=== PATIENT | male | born 2005 ===

== ENCOUNTER 2024-06-03 10:39 | Inpatient (IN) | payer OTHER, SELFPAY ==
[2024-06-03] VITALS (15 sets, daily range): BP systolic 111–134; BP diastolic 55–90; PULSE 59–81; RESP 12–29; TEMP 36.1–36.4; O2SAT 97–100; BMI 20.5; BMI 18.1
--- NOTE | 2024-06-03 10:54 | DI.RAD.S_ITS ---
PROCEDURE: XR CHEST 2V INDICATIONS: rule out pneumo TECHNIQUE: 2 views of the chest were acquired. COMPARISON: None. FINDINGS: Surgical changes and devices: None. Lungs and pleura: Lungs are clear. No pleural effusions. Small to moderate right pneumothorax. Mediastinum: Mediastinal contours are normal. Heart size is normal. Bones and chest wall: No suspicious bony abnormalities. Soft tissues appear unremarkable. IMPRESSION: Right-sided pneumothorax. Findings telephoned to Dr. Bourne on June 03, 2024 at 11:33 a.m. Dictated by: Kendra Chand MD, PhD on 06/03/2024 at 11:31 Approved by: Kendra Chand MD, PhD on 06/03/2024 at 11:33
--- NOTE | 2024-06-03 11:01 | EKG_ITS ---
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
[2024-06-03 11:16] LABS: Add Manual Diff / Slide Review NO; Basophils Absolute Auto 0 /uL (0-100); Basophils Percent Auto 0.4 % (0-2); Eosinophils Absolute Auto 0 /uL (0-450); Eosinophils Percent Auto 0.4 % (2-4); Hematocrit 39.8 % (41-53); Lymphocytes Absolute Auto 1800 /uL (1100-4500); Lymphocytes Percent Auto 28.4 % (25-40); Mean Corpuscular HGB Conc 32.8 % (30-36); Mean Corpuscular Hemoglobin 25.7 PG (26-34); Mean Corpuscular Volume 78.5 fL (80-100); Monocytes Absolute Auto 500 /uL (0-900); Monocytes Percent Auto 8.2 % (3-14); Neutrophils Absolute Auto 3900 /uL (1500-7000); Neutrophils Percent Auto 62.6 % (50-75); Platelet Count 276 X10^3/uL (150-400); Red Blood Cell Count 5.06 X10^6/uL (4.5-5.9); Red Cell Distribution Width 13.8 % (11.6-14.8); White Blood Cell Count 6.2 X10^3/uL (4.5-11.0)
--- NOTE | 2024-06-03 11:23 | PC.NURSE ---
Pt reports CP starting yesterday when working out; [place] in [place] and referred him to ER.
--- NOTE | 2024-06-03 11:26 | ED_ITS ---
HPI - General Adult General Chief complaint: Shortness of Breath/Dyspnea Stated complaint: states had CT, has cut in his lungs, sent by Dr Time Seen by Provider: 06/03/24 11:00 Source: patient Mode of arrival: Ambulatory History of Present Illness HPI narrative: Patient is a 18-year-old otherwise healthy male who states yesterday he was doing pushups. He stated that he had a sudden pain in his right shoulder. It caused him to stop his exercising. He went home. Was uncomfortable overnight and today. Some shortness of breath. 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 Apparently had a chest x-ray which showed a pneumothorax and was sent to the emergency department for further evaluation. Related Data Allergies Allergy/AdvReac Type Severity Reaction Status Date / Time No Known Drug Allergies Allergy Verified 06/03/24 10:49 Review of Systems Review of Systems ROS Unobtainable: All systems reviewed & are unremarkable except as noted in HPI and below Patient History Social History Smoking Status: Unknown if ever smoked Smoking Status: Unknown if ever smoked alcohol intake frequency: holidays/special occasions only Substance Use Type: does not use Exam Initial Vital Signs Initial Vital Signs: Vital Signs Temperature 96.9 F L 06/03/24 10:49 Pulse Rate 66 06/03/24 10:49 Respiratory Rate 14 06/03/24 10:49 Blood Pressure 120/70 06/03/24 10:49 Pulse Oximetry 100 06/03/24 10:49 Oxygen Delivery Method Room Air 06/03/24 10:49 Resp Effort & Inspection: normal respiratory effort, no cough, no respiratory distress and not tachypneic Auscultation: diminished lung sounds on the right Cardio Rate: regular rate Skin General: no rashes or lesions noted Neuro General: patient alert, patient awake, patient oriented x3 and moves all extremities Extrem General: capillary refill normal Procedures Chest Tube Chest Tube 1: Chest Tube Location: right and anterior axillary line Chest Tube Prep: Yes betadine prep and sterile drapes applied Local Anesthetic: lidocaine 1% and with epi Amount of anesthesia used (mL): 5 Incision Made With: #11 blade Post Procedure: sutured to skin and sterile dressing applied Tube Drainage: none Post Procedure CXR?: Yes Patient Tolerated Procedure: Yes Progress: Stewart pigtail catheter placed Course Orders Ordered: ED Orders 06/03/24 10:53 EKG-12 Lead Stat Measure peak expiratory flow ONCE RT Consult Eval and Treat NOW 06/03/24 10:54 Chest [XR chest 2V] Stat 06/03/24 11:00 Complete Blood Count AUTO DIFF Stat Comprehensive Metabolic Panel Stat 06/03/24 11:57 XR chest 1V Stat 06/03/24 12:04 Consult to General Surgery Stat Hydrocodone Bitart/Acetaminophen (Hydrocodone/Acet 5/325 Tablet) 2 tab PO Q4H PRN PRN Reason: Pain, Severe (7-10) Last Admin: 06/03/24 13:49 Dose: 2 tab Documented By: JEFF Hydrocodone Bitart/Acetaminophen (Hydrocodone/Acet 5/325 Tablet) 1 tab PO Q4H PRN PRN Reason: Pain, Moderate (4-6) Hydromorphone HCl (Hydromorphone 0.5 Mg Inj) 0.5 mg IV Q2H PRN PRN Reason: Pain, Severe (7-10) Ibuprofen (Ibuprofen 600 Mg Tablet) 600 mg PO Q6H PRN PRN Reason: Fever/Mild Pain (1-3) Naloxone HCl (Naloxone 0.4 Mg/Ml Vial) 0.2 mg IV Q2MIN PRN PRN Reason: Opiate Reversal Ondansetron HCl (Ondansetron 4 Mg/2 Ml Inj) 4 mg IV Q8HR PRN PRN Reason: Nausea And Vomiting Discontinued Medications Morphine Sulfate (Morphine 4 Mg/Ml Inj) 4 mg IV NOW ONE Stop: 06/03/24 12:06 Last Admin: 06/03/24 12:09 Dose: 4 mg Documented By: JEFF Vital Signs Vital signs: Vital Signs - 8 hr 06/03/24 10:49 06/03/24 10:57 06/03/24 10:57 Temperature 96.9 F L Pulse Rate 66 66 Respiratory Rate 14 Blood Pressure 120/70 125/60 Pulse Oximetry 100 100 Oxygen Delivery Method Room Air 06/03/24 11:00 06/03/24 11:00 06/03/24 11:30 Temperature Pulse Rate 81 65 Respiratory Rate 19 17 Blood Pressure 134/78 Pulse Oximetry 100 98 Oxygen Delivery Method 06/03/24 11:34 06/03/24 11:34 06/03/24 11:48 Temperature Pulse Rate 78 66 Respiratory Rate 13 12 Blood Pressure 119/72 119/72 Pulse Oximetry 100 98 Oxygen Delivery Method Medical Decision Making Lab Data Lab results reviewed: Yes I reviewed the patient's lab results. 06/03/24 11:00 06/03/24 11:00 Labs: Lab Results 06/03/24 Range/Units 11:00 WBC 6.2 (4.5-11.0) X10^3/uL RBC 5.06 (4.5-5.9) X10^6/uL Hgb 13.0 L (13.5-17.5) g/dL Hct 39.8 L (41-53) % MCV 78.5 L (80-100) fL MCH 25.7 L (26-34) PG MCHC 32.8 (30-36) % RDW 13.8 (11.6-14.8) % Plt Count 276 (150-400) X10^3/uL Neut % (Auto) 62.6 (50-75) % Lymph % (Auto) 28.4 (25-40) % Camp % (Auto) 8.2 (3-14) % Eos % (Auto) 0.4 L (2-4) % Baso % (Auto) 0.4 (0-2) % Neut # (Auto) 3900 (3365-0725) /uL Lymph # (Auto) 1800 (9682-5535) /uL Camp # (Auto) 500 (0-900) /uL Eos # (Auto) 0 (0-450) /uL Baso # (Auto) 0 (0-100) /uL Sodium 140 (137-145) mmol/L Potassium 3.8 (3.4-5.1) mmol/L Chloride 107 (98-107) mmol/L Carbon Dioxide 23 (22-32) mmol/L BUN 13 (9-20) mg/dL Creatinine 1.06 (0.66-1.25) mg/dL Estimated GFR > 60 (>60) mL/min BUN/Creatinine Ratio 12.3 (6-22) Glucose 79 (70-100) mg/dL Calcium 9.4 (8.4-10.2) mg/dL Total Bilirubin 0.5 (0.2-1.3) mg/dL AST 34 (17-59) IU/L ALT 14 (<50) IU/L Alkaline Phosphatase 79 (38-126) U/L Troponin I Cancelled NT-Pro-B Natriuret Pep Cancelled Total Protein 8.5 H (6.3-8.2) g/dL Albumin 4.8 (3.5-5.0) g/dL Globulin 3.7 (1.7-4.1) g/dL Albumin/Globulin Ratio 1.3 (1.0-2.8) Imaging Data Chest x-ray: Radiologist's Impression: PROCEDURE: XR CHEST 2V INDICATIONS: rule out pneumo TECHNIQUE: 2 views of the chest were acquired. COMPARISON: None. FINDINGS: Surgical changes and devices: None. Lungs and pleura: Lungs are clear. No pleural effusions. Small to moderate right pneumothorax. Mediastinum: Mediastinal contours are normal. Heart size is normal. Bones and chest wall: No suspicious bony abnormalities. Soft tissues appear unremarkable. IMPRESSION: Right-sided pneumothorax. Findings telephoned to Dr. Bourne on June 03, 2024 at 11:33 a.m. S/P chest tube CXR: Radiologist's Impression: PROCEDURE: XR CHEST 1V INDICATIONS: s/p r sided pigtail placement TECHNIQUE: One view of the chest was acquired. COMPARISON: [facility], XR CHEST 2V, 06/03/2024, 11:03. FINDINGS: Surgical changes and devices: Right-sided small bore pigtail chest tube. Lungs and pleura: Lungs are clear. No pleural effusions or pneumothorax. Mediastinum: Mediastinal contours appear normal. Heart size is normal. Bones and chest wall: No suspicious bony lesions. Overlying soft tissues appear unremarkable. IMPRESSION: No pneumothorax following placement of right-sided chest tube. Repeat chest x-ray: Radiologist's Impression: PROCEDURE: XR CHEST 1V INDICATIONS: continued pain after tube plaement TECHNIQUE: One view of the chest was acquired. COMPARISON: [facility], XR CHEST 1V, 06/03/2024, 11:46. [facility], XR CHEST 2V, 06/03/2024, 11:03. FINDINGS: Surgical changes and devices: Right-sided chest tube in place. Lungs and pleura: Lungs are clear. No pleural effusions or pneumothorax. Mediastinum: Mediastinal contours appear normal. Heart size is normal. Bones and chest wall: No suspicious bony lesions. Overlying soft tissues appear unremarkable. IMPRESSION: Right-sided chest tube in place. No pneumothorax is seen. ECG Data Attestation: I personally reviewed and interpreted this ECG as follows: Interpretation: Sinus rhythm Ventricular rate is 72 Normal axis Normal QRS Normal QTC No ST T wave changes MDM Narrative Medical decision making narrative: Patient has a spontaneous right-sided pneumothorax which probably occurred yesterday when he was doing pushups. Patient was not hypoxic. He tolerated the pigtail catheter placement without issue. Had some continued discomfort afterwards however repeated chest x-rays show that the pigtail catheter is in appropriate position with resolution of the pneumothorax. Discussed the case with Dr. Rene on-call with General surgery. We will admit for further evaluation and treatment. Discussed the need for admission with the patient. He expressed understanding and agreement as well. Discharge Plan Departure Patient Disposition: Admitted As Inpatient Clinical Impression: Spontaneous pneumothorax Admit Date/Time: 06/03/24 12:04 Admit Provider: Srikanth Rene
[2024-06-03 11:30] LABS: Alanine Aminotransferase 14 IU/L (<50); Albumin 4.8 g/dL (3.5-5.0); Albumin Globulin Ratio 1.3 (1.0-2.8); Alkaline Phosphatase 79 U/L (38-126); Aspartate Aminotransferase 34 IU/L (17-59); BUN Creatinine Ratio 12.3 (6-22); Bilirubin Total 0.5 mg/dL (0.2-1.3); Blood Urea Nitrogen 13 mg/dL (9-20); Calcium 9.4 mg/dL (8.4-10.2); Carbon Dioxide 23 mmol/L (22-32); Chloride 107 mmol/L (98-107); Estimated Glomerular Filt Rate > 60 mL/min (>60); Globulin 3.7 g/dL (1.7-4.1); Glucose 79 mg/dL (70-100); HEMOLYSIS < 15 (0-50); Potassium 3.8 mmol/L (3.4-5.1); Sodium 140 mmol/L (137-145); Total Protein 8.5 g/dL (6.3-8.2)
--- NOTE | 2024-06-03 11:43 | PC.NURSE ---
Patient is a healthy male in the who presents by referral for collapsed lung. He reports sob. His lung sounds are clear on left and diminished on the right. His o2 sat is 100% on RA.
--- NOTE | 2024-06-03 11:57 | DI.RAD.S_ITS ---
PROCEDURE: XR CHEST 1V INDICATIONS: s/p r sided pigtail placement TECHNIQUE: One view of the chest was acquired. COMPARISON: [facility], , XR CHEST 2V, 06/03/2024, 11:03. FINDINGS: Surgical changes and devices: Right-sided small bore pigtail chest tube. Lungs and pleura: Lungs are clear. No pleural effusions or pneumothorax. Mediastinum: Mediastinal contours appear normal. Heart size is normal. Bones and chest wall: No suspicious bony lesions. Overlying soft tissues appear unremarkable. IMPRESSION: No pneumothorax following placement of right-sided chest tube. Dictated by: Kendra Chand MD, PhD on 06/03/2024 at 12:07 Approved by: Kendra Chand MD, PhD on 06/03/2024 at 12:08
--- NOTE | 2024-06-03 12:03 | PC.NURSE ---
Patient tolerated the catheter placement but did not tolerate the suction. He complained of increasing discomfort. provider notified and the suction was decreased per provider verbal order. The patient was still having discomfort so the suction was discontinued per provider order and pleur-e-vac was set to water seal.
[2024-06-03] MEDS: MORPHINE 4 MG/ML INJ IV (12:09)
--- NOTE | 2024-06-03 13:16 | DI.RAD.S_ITS ---
PROCEDURE: XR CHEST 1V INDICATIONS: continued pain after tube plaement TECHNIQUE: One view of the chest was acquired. COMPARISON: [facility], CR, XR CHEST 1V, 06/03/2024, 11:46. [facility], CR, XR CHEST 2V, 06/03/2024, 11:03. FINDINGS: Surgical changes and devices: Right-sided chest tube in place. Lungs and pleura: Lungs are clear. No pleural effusions or pneumothorax. Mediastinum: Mediastinal contours appear normal. Heart size is normal. Bones and chest wall: No suspicious bony lesions. Overlying soft tissues appear unremarkable. IMPRESSION: Right-sided chest tube in place. No pneumothorax is seen. Dictated by: Tate Ruiz M.D. on 06/03/2024 at 14:11 Approved by: Tate Ruiz M.D. on 06/03/2024 at 14:13
--- NOTE | 2024-06-03 13:18 | P.HP_ITS ---
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 He was diagnosed with a spontaneous right knee pneumothorax and sent to the ER here. Chest x-ray confirmed the diagnosis. Dr. Bourne placed a pigtail catheter to evacuate the pneumothorax with good results. Follow up chest x-ray demonstrates resolution of the pneumothorax but he continues to have discomfort. He is unable to take a deep breath or cough because of pain. He had discomfort while he was connected to suction so he was placed on water seal but he still has discomfort. [facility] Social History Smoking Status: Unknown if ever smoked Meds Home Medications and Allergies Allergies Allergy/AdvReac Type Severity Reaction Status Date / Time No Known Drug Allergies Allergy Verified 06/03/24 10:49 Exam Vital Signs (past 8 hours): - 06/03/24 10:49 06/03/24 10:57 06/03/24 10:57 Temperature 96.9 F L Pulse Rate 66 66 Respiratory Rate 14 Blood Pressure 120/70 125/60 Pulse Oximetry 100 100 Oxygen Delivery Method Room Air 06/03/24 11:00 06/03/24 11:00 06/03/24 11:30 Temperature Pulse Rate 81 65 Respiratory Rate 19 17 Blood Pressure 134/78 Pulse Oximetry 100 98 Oxygen Delivery Method 06/03/24 11:34 06/03/24 11:34 06/03/24 11:48 Temperature Pulse Rate 78 66 Respiratory Rate 13 12 Blood Pressure 119/72 119/72 Pulse Oximetry 100 98 Oxygen Delivery Method Oxygen Delivery Method Room Air Const General: No acute distress Resp Effort & Inspection: normal respiratory effort Other: No visible air leak in the water seal chamber but he was unable to offer to get the breath Objective Labs 06/03/24 11:00 06/03/24 11:00 Labs: Laboratory Results - last 24 hr 06/03/24 11:00 WBC 6.2 RBC 5.06 Hgb 13.0 L Hct 39.8 L MCV 78.5 L MCH 25.7 L MCHC 32.8 RDW 13.8 Plt Count 276 Neut % (Auto) 62.6 Lymph % (Auto) 28.4 Angelina % (Auto) 8.2 Eos % (Auto) 0.4 L Baso % (Auto) 0.4 Neut # (Auto) 3900 Lymph # (Auto) 1800 Angelina # (Auto) 500 Eos # (Auto) 0 Baso # (Auto) 0 Sodium 140 Potassium 3.8 Chloride 107 Carbon Dioxide 23 BUN 13 Creatinine 1.06 Estimated GFR > 60 BUN/Creatinine Ratio 12.3 Glucose 79 Calcium 9.4 Total Bilirubin 0.5 AST 34 ALT 14 Alkaline Phosphatase 79 Troponin I Cancelled NT-Pro-B Natriuret Pep Cancelled Total Protein 8.5 H Albumin 4.8 Globulin 3.7 Albumin/Globulin Ratio 1.3 Assessment & Plan Assessment and plan (1) Spontaneous pneumothorax: Status: Acute Plan 18-year-old man with a spontaneous pneumothorax with a pigtail catheter. Repeat the chest x-ray since he was having some pain still. Then observation on the floor. Time-Based Coding :: [TOTAL MINUTES] spent with patient and on the chart (including review of chart, obtaining history, exam, reviewing outside data, placing orders, documenting exam and treatment plan, and counseling patient) on [DATE].
[2024-06-03] MEDS: HYDROCODONE/ACET 5/325 TABLET 2 TAB PO (13:49)
[2024-06-03] MEDS: HYDROMORPHONE 0.5 MG INJ IV ×2 (15:20→21:32)
[2024-06-03] MEDS: SODIUM CHLORIDE 0.9% FLUSH 10 ML IV ×2 (21:32→21:33)
[2024-06-03] MEDS: HYDROCODONE/ACET 5/325 TABLET 1 TAB PO (23:37)
[2024-06-04] VITALS: BP 110/59; PULSE 52; RESP 18; TEMP 36.3; O2SAT 98
--- NOTE | 2024-06-04 | DI.RAD.S_ITS ---
PROCEDURE: XR CHEST 2V INDICATIONS: Pneumothorax TECHNIQUE: 2 views of the chest were acquired. COMPARISON: [facility], , XR CHEST 1V, 06/03/2024, 13:21. FINDINGS: Surgical changes and devices: Right-sided chest tube position is unchanged. Lungs and pleura: Persistent small right apical pneumothorax measures up to 1.1 cm in craniocaudal dimension not significantly changed from previous day. Mediastinum: Mediastinal contours are normal. Heart size is normal. Bones and chest wall: No suspicious bony abnormalities. Soft tissues appear unremarkable. IMPRESSION: Stable small residual right apical pneumothorax. No pleural effusion. Left lung is clear. Dictated by: Anirudh Mckoen M.D. on 06/04/2024 at 10:21 Approved by: Anirudh Mckeon M.D. on 06/04/2024 at 10:22
[2024-06-04 04:00] VITALS: BP 110/65; PULSE 65; RESP 16; TEMP 36.5; O2SAT 100
[2024-06-04 08:00] VITALS: BP 130/64; PULSE 71; RESP 16; TEMP 36.4; O2SAT 99
[2024-06-04] MEDS: HYDROCODONE/ACET 5/325 TABLET 1 TAB PO (12:34)
[2024-06-04] MEDS: SODIUM CHLORIDE 0.9% FLUSH 10 ML IV (12:34)
--- NOTE | 2024-06-04 12:49 | DI.RAD.S_ITS ---
PROCEDURE: XR CHEST 1V INDICATIONS: f/u tube removal TECHNIQUE: One view of the chest was acquired. COMPARISON: [facility], CR, XR CHEST 2V, 06/04/2024, 8:18. [facility], CR, XR CHEST 1V, 06/03/2024, 13:21. FINDINGS: Surgical changes and devices: Pigtail right pleural chest tube has been withdrawn.. Lungs and pleura: Lungs are clear. No pleural effusions. There is a small residual right apical pneumothorax measuring up to 1.2 cm. . Mediastinum: Mediastinal contours appear normal. Heart size is normal. Bones and chest wall: No suspicious bony lesions. Overlying soft tissues appear unremarkable. IMPRESSION: Small residual atypical 1.2 cm pneumothorax after right pleural drain. Depending on status follow-up repeat film in several hours may warranted. Dictated by: Ryne Monreal M.D. on 06/04/2024 at 13:45 Approved by: Ryne Monreal M.D. on 06/04/2024 at 13:47
--- NOTE | 2024-06-04 14:07 | PM.DS.1 ---
History of Present Illness History of Present Illness Date Patient Seen: 06/04/24 Time Patient Seen: 20:25 Chief complaint: states had CT, has cut in his lungs, sent by Narrative: 18-year-old male admitted for a spontaneous pneumothorax Discharge Providers Provider Date of admission: 06/03/24 12:04 Discharge Date: 06/04/24 Consults: 06/03/24 12:04 Consult to General Surgery Stat Comment: Consulting Provider: Srikanth Rene Reason for consultation: Spontaneous pneumothorax Has provider been notified: Yes Discharge provider: Pedro Falcon MD Summary Hospital Course Discharge Diagnosis: Pneumothorax Hospital Course: Pigtail catheter placed for right pneumothorax in the emergency department. He was brought to the floor for observation. Chest x-ray post placement demonstrates a small residual apical pneumothorax. Chest tubes removed and there was no significant change in his residual pneumothorax. He is without pain breathing nonlabored O2 sat 99% on room air. He was provided with return precautions for worsening chest pain shortness of breath. Exam Vital Signs (past 8 hours): - 06/04/24 08:00 Temperature 97.5 F L Pulse Rate 71 Respiratory Rate 16 Blood Pressure 130/64 Pulse Oximetry 99 Oxygen Delivery Method Room Air Oxygen Flow Rate 0 Narrative Exam Narrative: General thin adult male alert oriented no acute distress Chest nonlabored respiration Abdomen soft nontender nondistended Objective Labs 06/03/24 11:00 06/03/24 11:00 [facility] Social History household members: friend(s) Smoking Status: Never smoker alcohol intake: never Discharge Plan Discharge Plan Patient Disposition: Home Provider Discharge Comment: Returned to the emergency room for worsening shortness of breath, chest pain Avoid contact sports and air travel for the next 2 weeks Discharge orders & Medications Prescriptions: No Action No Known Home Medications Diet/Activity/Treatments Diet: Diet as Tolerated Skin/Wound/Dressing Care Report to your healthcare provider any signs of infection, such as:: increased pain Visit Report/Discharge Packet Instructions: DI for Pneumothorax Stand Alone Forms: Patient Portal/API, Stroke Signs & Symptoms Quality VTE Deep Vein Thrombosis/Pulmonary Embolism Present on Admission: No
--- NOTE | 2024-06-04 14:18 | CM.DANOTE ---
DCP Assessment Note: Pt is a 18yo male, resident of [place], admitted for pneumothorax. Pt lives in the [facility] with a roommate. Pt's Primary Care Provider is with the [facility] and insurance is [employer] and self pay. Reviewed chart and team rounds for pt's medical status and initial discharge needs. DCP met w/patient at bedside; introduced self and role. Pt was found in bed, alert and oriented, cooperative with assessment. Pt confirmed living situation and good support in [place] leadership. Pt expressed preference in returning home as soon as medically stable. No needs identified. Plan: Discharge order is in, 06/04. Anticipating discharge home with [place] leadership to transport back to [facility]. CM team will plan to follow clinical course closely for coordination of discharge plan. CARMINE Villarreal Discharge Planning/Care Management CM Discharge Assessment Start: 06/04/24 14:14 Freq: Status: Active Protocol: Document 06/04/24 14:15 MW (Rec: 06/04/24 14:18 MW [id number]) Discharge Planning Assessment Assigned Head Counselor YINA Solis/Assigned Designee Name Mother Salomon Contact Information [phone] Advance Directives? No History Provided By Patient,Medical Record Expected Length of Stay 1 Prior Living Arrangements Other Comment Patient lives in the [facility], has a roommate. Household Members friend(s) Type of transporation used prior to Drives own vehicle admit Independent with ADL's Yes Is patient alert and oriented? Yes Caregiver for Another No Barriers to Discharge No Discharge Plan Home Transportation Arrangement [facility]. Whiteboard Updated in Patient Room with Yes name and ext. # of Head Counselor Comment [phone] Please Provide Date Initial DC 06/04/24 Assessment Was Performed Next Review Type Continued Stay Review
--- NOTE | 2024-06-04 16:17 | PC.NURSE ---
1507: PIV d/c'ed. Discharge education provided re: pneumothorax care and follow up. Pt stated all questions answered. All belongings with pt. Pt escorted to exit via wheelchair by MARIA LUISA Jara.
== END 2024-06-04 15:07 | disposition home or self-care (01) | DRG 201 ==
LOC: ED 11:32 → AC 12:05
PROVIDERS: Admitting Provider Surgery; Emergency Provider Emergency Medicine; Referring Provider Emergency Medicine; Visit Provider Surgery
DX: J93.83 Other pneumothorax (principal)
CPT/HCPCS: 32551; 36415; 71045; 71046; 80053; 85025; 93005; 96374; 99284; 99285; J1170; J2270

== ENCOUNTER → 2024-09-29 13:18 | Outpatient (CLI) | payer OTHER, SELFPAY ==
[2024-09-23 08:29] VITALS: BMI 18.1
== END ==
PROVIDERS: Visit Provider Urology
DX: R39.9 Unspecified symptoms and signs involving the genitourinary system (principal); Z96.0 Presence of urogenital implants
CPT/HCPCS: 87077; 87086; 87186

== ENCOUNTER → 2024-11-03 11:05 | Outpatient (CLI) | payer OTHER, SELFPAY ==
[2024-09-23 08:29] VITALS: BMI 18.1
--- NOTE | 2024-11-03 11:07 | DI.US.S_ITS ---
PROCEDURE: US RENAL COMPLETE INDICATIONS: 19 y/o M w/ prior right robotic kidney surgery, please eval. TECHNIQUE: Real-time scanning was performed of the kidneys and bladder, with image documentation. COMPARISON: None. FINDINGS: Kidneys: Kidneys are normal in size. Right kidney measures 8.8 cm long; left kidney measures 8.7 cm long. Right renal cortical thickness is 2.2 cm; left renal cortical thickness is 1.7 cm. There is moderate right hydroureteronephrosis. There is no left hydronephrosis. There is no obstructive urolithiasis. There is mild circumferential edema around the right distal ureter. There is also mild hypoechogenicity of the right inferior renal cortical parenchyma. Bladder: Pre-void bladder volume is 173 mL. Post-void residual is 12 mL. Pre-void images demonstrate no intraluminal masses or stones. On pre-void images, bilateral ureteral jets are noted with color Doppler interrogation. (Of note, ureteral jets may not be detectable in up to 25% of cases due to insufficient differences in specific gravity between ureteral and bladder urine). Miscellaneous: No free pelvic fluid. IMPRESSION: Moderate right hydroureteronephrosis with possible ureteritis and pyelonephritis. Please correlate with clinical history and consider a CT urogram for further evaluation. Dictated by: Jorge Zuniga M.D. on 11/03/2024 at 19:59 Approved by: Jorge Zuniga M.D. on 11/03/2024 at 20:09
== END ==
LOC: US 11:06
PROVIDERS: Referring Provider Urology; Visit Provider Urology
DX: R39.9 Unspecified symptoms and signs involving the genitourinary system (principal); N13.30 Unspecified hydronephrosis
CPT/HCPCS: 76770

== ENCOUNTER → 2024-11-18 10:10 | Outpatient (CLI) | payer OTHER, SELFPAY ==
[2024-09-23 08:29] VITALS: BMI 18.1
== END ==
PROVIDERS: Visit Provider Urology
DX: N13.39 Other hydronephrosis (principal); R39.9 Unspecified symptoms and signs involving the genitourinary system
CPT/HCPCS: 81002; 87077; 87086; 87186; 99213